=== PATIENT | female | born 1940 | race Caucasian/White ===

== ENCOUNTER → 2017-09-04 | Outpatient (CLI) | payer OTHER | END | disposition home or self-care (01) | LOC: OIH 14:05 | PROVIDERS: ATTEND Internal Medicine | DX: Z13.6 Encounter for screening for cardiovascular disorders (principal) | CPT/HCPCS: 75571 ==

== ENCOUNTER → 2017-10-12 | Outpatient (CLI) | payer MEDICARE ==
[~2017-10-12] MED LIST: REGADENOSON 0.4 MG/5 ML PF SYG IVP SCH
== END | disposition home or self-care (01) ==
LOC: RAH 08:36
PROVIDERS: ATTEND Internal Medicine
DX: R07.9 Chest pain, unspecified (principal)
CPT/HCPCS: 78452; 93017; 96374; A9500 ×2; J2785

== ENCOUNTER → 2018-05-11 | Outpatient (CLI) | payer MEDICARE | END | disposition home or self-care (01) | LOC: RAH 13:43 | PROVIDERS: ATTEND Internal Medicine | DX: Z12.31 Encounter for screening mammogram for malignant neoplasm of breast (principal) | CPT/HCPCS: 77067 ==

== ENCOUNTER → 2019-05-17 | Outpatient (CLI) | payer MEDICARE | END | disposition home or self-care (01) | LOC: RAH 14:16 | PROVIDERS: ATTEND Internal Medicine | DX: Z12.31 Encounter for screening mammogram for malignant neoplasm of breast (principal) | CPT/HCPCS: 77067 ==

== ENCOUNTER → 2019-10-28 | Outpatient (CLI) | payer MEDICARE | END | disposition home or self-care (01) | LOC: SHCH 08:26 | PROVIDERS: ATTEND Internal Medicine Cardiovascular Disease | DX: I35.0 Nonrheumatic aortic (valve) stenosis (principal) | CPT/HCPCS: 93306; 93356 ==

== ENCOUNTER → 2020-07-15 | Outpatient (CLI) | payer MEDICARE | END | disposition home or self-care (01) | LOC: RAH 08:05 | PROVIDERS: ATTEND Internal Medicine | DX: Z12.31 Encounter for screening mammogram for malignant neoplasm of breast (principal) | CPT/HCPCS: 77067 ==

== ENCOUNTER → 2022-05-30 | Outpatient (CLI) | payer MEDICARE | END | disposition home or self-care (01) | LOC: SHCH 13:04 | PROVIDERS: ATTEND Internal Medicine Cardiovascular Disease | DX: I08.3 Combined rheumatic disorders of mitral, aortic and tricuspid valves (principal); I11.9 Hypertensive heart disease without heart failure; E78.5 Hyperlipidemia, unspecified | CPT/HCPCS: 93306 ==

== ENCOUNTER → 2023-05-13 | Outpatient (CLI) | payer MEDICARE | END | disposition home or self-care (01) | LOC: SHCH 11:27 | PROVIDERS: ATTEND Internal Medicine Cardiovascular Disease | DX: I35.0 Nonrheumatic aortic (valve) stenosis (principal); I10 Essential (primary) hypertension; R93.1 Abnormal findings on diagnostic imaging of heart and coronary circulation; Z79.82 Long term (current) use of aspirin; Z79.899 Other long term (current) drug therapy | CPT/HCPCS: 93306 ==

== ENCOUNTER → 2024-06-29 | Outpatient (CLI) | payer MEDICARE ==
--- NOTE | 2024-06-30 22:09 | HMCSR ---
APPROVED REPORT EXAM: Two-dimensional and M-mode echocardiogram with Doppler and color Doppler. INDICATION ICD: I35.0 Non-rheumatic aortic valve stenosis 2D Dimensions RVDd3.1 cmLVEF(%)58.0 (>50%)LVED Vol(simp.)92.0 mL IVSd1.3 (0.7-1.1cm)FS(%)30 %LVES Vol(simp.)34.0 mL LVDd4.3 (3.8-5.6cm)Ao Root(2D)2.9 (2.0-3.7cm)LVEF(%, simp.)63 % PWd1.2 (0.7-1.1cm)LVOT diam2.0 (1.8-2.4cm)LA ESV INDEX (BP)36.72 mL/m2 LVDs3.0 (2.5-4.0cm)IVC diam1.5 cm Aortic Valve AoV Vmax4.7 m/Roseanne Peak GR87.3 mmHgLVOT Vmax1.2 m/s AoV VTI1.2 mAo Mean GR51.2 mmHgLVOT VTI0.28 m ANGELLA (VMAX)0.7 cm2Al P1/2T454 msAVA (VTI) 0.7 cm2 Mitral Valve MV E Vmax86.6 cm/sDECEL Lmqb909 ms MV A Fwwj488.7 cm/sP 1/2 T96 ms E/A ratio0.6MVA (PHT)2.3 cm2 MR Max PG142 mmHg TDI E/E' Gzeqih79.2E/E' Ceukqiu52.1 Pulmonary Valve PV Vmax1.1 m/sPV VTI0.22 mPV Mean GR2 mmHg PV Peak GR4.5 mmHgPI End Donna. Lucius 1.0 cm/s Tricuspid Valve TR Vmax2.5 m/sRAP (EST) 3 baMeQCIA38.0 mmHg TR Peak GR25.0 mmHg Left Ventricle The left ventricle structure and function is normal. There is normal LV segmental wall motion. There is mild concentric left ventricular hypertrophy. LVEF is 60-65%. Grade 2 diastolic dysfunction. Right Ventricle The right ventricle is normal size. Prominent apical RV trabeculations. Right ventricular systolic fu nction is moderately reduced. Atria The left atrium is mildly dilated. The right atrium size is normal. Aortic Valve Aortic valve is trileaflet. The aortic valve is calcified and displays decreased opening. Trace aorti c regurgitation. AV Dimensionless Index is 0.23 Calculated aortic valve area is 0.7 cm2 with maximum pressure gradient of 87.3 mmHg and mean pressure gradient of 51.2 mmHg. Dimensionless index is 0.23. Findings consistent with severe . Mitral Valve Mitral valve leaflets are mildly sclerotic but open well. Mitral annular calcification is mild. Kaylee l regurgitation is mild to moderate. There is no mitral valve stenosis. Tricuspid Valve The tricuspid valve leaflets appear normal. There is trace tricuspid regurgitation. Pulmonic Valve Pulmonic valve is not well visualized. There is trace to mild valvular regurgitation. Great Vessels The aortic root is normal in size. The IVC is normal in size and collapses >50% with inspiration. Pericardium No pericardial effusion. Conclusion The right ventricle is normal size. Prominent apical RV trabeculations. There is mild concentric left ventricular hypertrophy. There is normal LV segmental wall motion. LVEF is 60-65%. Grade 2 diastolic dysfunction. Aortic valve is trileaflet. The aortic valve is calcified and displays decreased opening. Calculated aortic valve area is 0.7 cm2 with maximum pressure gradient of 87.3 mmHg and mean pressure gradient of 51.2 mmHg. Dimensionless index is 0.23. Findings consistent with severe . Mitral valve leaflets are mildly sclerotic but open well. Mitral annular calcification is mild. Mitral regurgitation is mild to moderate. No pericardial effusion.
== END | disposition home or self-care (01) ==
LOC: SHCH 07:56
PROVIDERS: ATTEND Internal Medicine Cardiovascular Disease
DX: I08.8 Other rheumatic multiple valve diseases (principal); I35.0 Nonrheumatic aortic (valve) stenosis
CPT/HCPCS: 93306

== ENCOUNTER 2024-08-15 06:43 | Day surgery (SDC) | payer MEDICARE ==
[2024-08-13 11:12] LABS: BASOPHILS # (AUTO) 0.09 K/uL (0.00-0.20); BASOPHILS % (AUTO) 0.9 % (0.0-5.0); EOSINOPHILS # (AUTO) 0.06 K/uL (0.00-0.70); EOSINOPHILS % (AUTO) 0.6 % (0.0-8.0); HEMATOCRIT 43.6 % (36-48); IMMATURE GRANULOCYTE ABSOLUTE 0.03 K/uL (0-1); LYMPHOCYTES # (AUTO) 1.6 K/uL (1.0-4.8); LYMPHOCYTES % (AUTO) 16.2 % (21.0-51.0); MEAN CORPUSCULAR HGB CONC 33.9 g/dL (32.0-36.0); MEAN CORPUSCULAR VOLUME 91.2 fL (79-99); MONOCYTES # (AUTO) 0.7 K/uL (0.1-1.0); MONOCYTES % (AUTO) 6.6 % (3.0-13.0); NEUTROPHILS # (AUTO) 7.4 K/uL (1.8-7.7); NEUTROPHILS % (AUTO) 75.4 % (40.0-77.0); PLATELET COUNT (AUTO) 252 K/uL (130-400); RED BLOOD CELL COUNT(AUTO) 4.78 MIL/uL (4.00-5.50); RED CELL DISTRIBUTION WIDTH 12.9 % (11.0-15.5); WHITE BLOOD COUNT (AUTO) 9.9 K/uL (4.8-10.8)
[2024-08-13 11:16] LABS: CREATININE 0.9 mg/dL (0.5-1.0); POTASSIUM 4.4 mmol/L (3.5-5.1)
--- NOTE | 2024-08-13 11:22 | EKG ---
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
[2024-08-13 11:25] VITALS: BP 153/74; PULSE 80; RESP 18; TEMP 97.3
[2024-08-13 11:29] LABS: INR <= 0.93 (0.85-1.15); PROTHROMBIN TIME 10.3 SEC (9.6-11.6)
[2024-08-13 11:31] LABS: PARTIAL THROMBOPLASTIN TIME 27.1 SEC (26.3-35.5)
[2024-08-13 11:34] LABS: B-TYPE NATRIURETIC PEPTIDE 71 pg/mL (0-100)
--- NOTE | 2024-08-13 12:23 | HMCIMG ---
Exam Type: CHEST 1VW Clinical Information: PREOP Comparison: None Findings: The lungs are clear of infiltrates. The heart is normal in size. The bony and soft tissue structures of the chest are unremarkable. Impression: Clear lungs.
[2024-08-15] VITALS (14 sets, daily range): BP systolic 100–173; BP diastolic 45–80; PULSE 59–81; RESP 14–16; TEMP 97.1–97.5
[~2024-08-15] VITALS: Ht 154.9 cm; Wt 78.5 kg
[~2024-08-15 06:43] MED LIST changes: +AMLO-258 PO; +ASPI-1443 PO; +EZET-77 PO; +GLUC1TAB61 PO; +LEVO125T95 PO; +LOSA50TA64 PO; -REGADENOSON 0.4 MG/5 ML PF SYG IVP SCH; +UBID100T7 PO
[2024-08-15] MEDS ORDERED: 0.9%NACL 1000ML 1,000 ML IV SCH ×2 (08:30→12:00)
[2024-08-15] MEDS ORDERED: IOHEXOL 350 MG/ML 100ML INFUS..BTL IV ONE (09:28)
[2024-08-15] MEDS ORDERED: LIDOCAINE HCL 400MG/20ML VIAL ONE (09:28)
[2024-08-15] MEDS ORDERED: HEParin-NS 1,000 UNIT/500 ML 1,000 ML IV ONE (09:28)
[2024-08-15] MEDS ORDERED: NITROGLYCERIN 50MG VIAL ONE (09:29)
[2024-08-15] MEDS ORDERED: HEParin-NS 1,000 UNIT/500 ML 500 ML IV ONE (09:31)
[2024-08-15] MEDS ORDERED: FENTanyl CITRate PF 50 MCG/1 ML 2ML VIAL ONE (09:37)
[2024-08-15] MEDS ORDERED: BIVALIRUDIN 250 MG/VIAL IV ONE (09:38)
[2024-08-15] MEDS ORDERED: HEParin 10,000 UNIT/10ML (1,000 UNIT/ML) VIAL ONE (09:38)
[2024-08-15] MEDS ORDERED: MIDAZOLAM HCL 1 MG/ML 2ML VIAL ONE (09:38)
[2024-08-15] MEDS ORDERED: IOHEXOL-350 50ML VIAL IV ONE (10:42)
[2024-08-15] MEDS ORDERED: ATROPINE 1MG SYG IVP ONE (11:29)
--- NOTE | 2024-08-15 12:01 | PRN ---
DATE OF PROCEDURE: 08/15/2024 PROCEDURE PERFORMED: RIGHT AND LEFT HEART CATHETERIZATION, LEFT VENTRICULOGRAM, RIGHT AND LEFT SELECTIVE CORONARY ANGIOGRAM, RIGHT COMMON FEMORAL ANGIOGRAM, FAILED PERCLOSE SUTURE CLOSURE OF THE RIGHT COMMON FEMORAL ARTERY, MYNX CLOSURE, AND CONSCIOUS SEDATION SPLICING MACHINE OPERATOR: Vaughn Valentino MD, [facility] INDICATION: Severe asymptomatic aortic stenosis PROCEDURE NOTE: After informed consent was obtained the patient was prepped and draped in the usual sterile fashion. A 6 [place] 65 cm arterial sheath was inserted in the right femoral artery using a modified micropuncture technique with ultrasound guidance with a front wall, first pass puncture. A seven [place] venous sheath with hemostatic valve was inserted in the right common femoral vein again with micropuncture technique and ultrasound guidance. The venous sheath was aspirated and flushed and the arterial sheath was aspirated and flushed. A seven [place] S tipped [place] catheter was advanced to the right heart using balloon floatation and ultrasound guidance. Pressure measurements were obtained in the RA, RV, PA, and pulmonary capillary wedge positions. A 5 [place] pigtail catheter was then advanced over a J-tipped guidewire to the ascending aorta, then using a straight floppy-tipped wire we easily traverse the stenotic aortic valve. The catheter was aspirated and flushed and pressure measurements were obtained in the LV and descending thoracic aorta via the long 65 cm sheath. Simultaneous pressure measurement of LVEDP and wedge pressure were obtained. Both Wolf and thermodilution cardiac outputs were obtained, followed by calculation of aortic valve areas. A left ventriculogram was then performed in a 30 EATON projection. A pullback procedure was then performed, and this catheter was removed through the long arterial sheath. A 6F JL-4 was then advanced to the ascending aorta over a J-tipped guidewire, was aspirated and flushed, and was used for selective left coronary angiograms in multiple obliquities. A JR-4 was advanced in a similar fashion to the ascending aorta over a J-tipped guidewire and was used for selective right coronary angiograms in multiple obliquities with findings as outlined below. A right common femoral angiogram was performed to assess suitability for Perclose suture closure and the Perclose device was deployed in standard fashion. Due to calcification of the right common femoral artery two Perclose devices failed to deployed and a Mynx closure device was deployed. A small hematoma was noted following the procedure. FINDINGS: RIGHT HEART CATHETERIZATION: RA pressure: 10 mm of mercury on the A-wave 8 mm of mercury on the V-wave Mean RA pressure 6 mm of mercury RV pressure: 35/10 mm of mercury PA pressure: 35/16 mm of mercury with a mean PA pressure of 18 mm of mercury. Pulmonary capillary wedge pressure: 15 mm of mercury on the A-wave, 16 mm of mercury on the V-wave. Mean pulmonary capillary wedge pressure 12 mm of mercury. Wolf cardiac output 3.2 L per minute with cardiac index of 1.8 liters/minute per meter squared Thermodilution cardiac output 4.6 liters/minute with cardiac index of 2.6 liters/minute per meter squared LEFT HEART HEMODYNAMICS: Aortic valve peak to peak gradient 33 mm of mercury and mean gradient 30 mm of mercury Aortic valve area with thermodilution cardiac output 0.8 cm2 and with Wolf cardiac output 0.6 cm2 LEFT VENTRICULOGRAM: The LVEF was greater than 80% with a hyperdynamic left ventricle. There was no angiographic MR. CORONARY ANGIOGRAM: LEFT MAIN: The left main had a 75% distal stenosis with calcification. LEFT ANTERIOR DESCENDING: The proximal LAD was calcified and there was a 70% calcific mid LAD stenosis with a 50% distal LAD stenosis followed by a small apical LAD measuring approximately 1.5 mm. The diagonal one had an 80% proximal stenosis. LEFT CIRCUMFLEX: The left circumflex was nondominant and had an 80% proximal stenosis after a small OM1 which was normal. The OM2 was small and normal and the OM3 was also small and normal. RAMUS INTERMEDIATE BRANCH: The ramus intermediate was large and had a 90% proximal followed by a tandem 90% proximal stenosis. The distal ramus was suitable for bypass. RIGHT CORONARY ARTERY: The right coronary artery was dominant and had a 50% calcific proximal stenosis with a 50% calcific proximal to mid stenosis. The distal RCA and posterolateral branch were normal. The PDA had a 40% proximal stenosis. IMPRESSION: Severe asymptomatic aortic stenosis with aortic valve area of 0.8 cm2, peak aortic valve gradient 33 mm of mercury and mean aortic valve gradient of 30 mm of mercury. Hyperdynamic LV with LVEF of greater than 80%. No mitral regurgitation. No mitral stenosis. Mitral annular calcification was noted. Severe left main and three-vessel coronary artery disease with 75% distal left main stenosis, 70% mid LAD stenosis, 90% and 90% tandem proximal ramus intermediate stenosis, 80% proximal left circumflex stenosis, and 50% and 50% tandem proximal RCA stenoses RECOMMENDATION: Evaluate for surgical aortic valve replacement with coronary artery bypass surgery. COMPLICATIONS OF PROCEDURE: None, the patient tolerated the procedure well and was returned to her room in stable condition. HEMOSTASIS: Perclose suture closure failed due to calcification of the right common femoral artery. Mynx closure device successful. ESTIMATED BLOOD LOSS: 15 mL. CONTRAST TOTAL: 115 mL. VAUGHN VALENTINO MD Aug 15, 2024 12:01
--- NOTE | 2024-08-15 12:42 | NUR ---
NOTED PATIENTS RIGHT GROIN DRESSING HALF SOAKED WITH BLOOD, D-STAT APPLIED HELD PRESSURE X 10 MINUTES. SITE APPEARED ASYMPTOMATIC AFTER.
--- NOTE | 2024-08-15 14:20 | NUR ---
SPOKE TO [facility] S[facility] WAS TOLD THEY CAN FOLLOW UP WITH PT OUT PT. INFORMATION FAXED TO NICHOLAS DELGADO
== END 2024-08-15 17:25 | disposition home or self-care (01) ==
LOC: DAH 06:43
PROVIDERS: ATTEND Internal Medicine Cardiovascular Disease
DX: I35.0 Nonrheumatic aortic (valve) stenosis (principal); R93.1 Abnormal findings on diagnostic imaging of heart and coronary circulation; I25.10 Atherosclerotic heart disease of native coronary artery without angina pectoris; I10 Essential (primary) hypertension; E78.5 Hyperlipidemia, unspecified; E03.9 Hypothyroidism, unspecified; Z79.82 Long term (current) use of aspirin; Z86.73 Personal history of transient ischemic attack (TIA), and cerebral infarction without residual deficits; Z90.49 Acquired absence of other specified parts of digestive tract; Z90.89 Acquired absence of other organs; Z88.0 Allergy status to penicillin; Z88.1 Allergy status to other antibiotic agents; Z79.01 Long term (current) use of anticoagulants; Z79.899 Other long term (current) drug therapy
CPT/HCPCS: 80048; 83880; 85025; 85610; 85730; 36415; 71045; 93005; 93460; C1769 ×2; C1894 ×4; C1760 ×3; C1893 ×2; J3010; J3490 ×2; J0461; J2250; J1644 ×2; Q9967 ×2; A4215; A4222; A4221; A4663; A4216; A4606; A4223 ×3; 96360; 96361; 99156; 99157; J0583

== ENCOUNTER 2024-12-10 09:20 | Day surgery (SDC) | payer OTHER, MEDICARE ==
[2024-12-10] VITALS (23 sets, daily range): BP systolic 98–137; BP diastolic 38–86; PULSE 68–78; RESP 14–40; TEMP 98–98.2; O2SAT 92–94
[~2024-12-10] VITALS: Ht 162.6 cm; Wt 81.1 kg
--- NOTE | 2024-12-10 10:30 | NUR ---
Obtained consent from patient's spouse (Edgar Guzman) due to patient inability to sign own consent as a result of upper extremity weakness. Patient verbalized understanding of scheduled inferior vena cava filter placement and agreed. No further needs noted.
[2024-12-10] MEDS ORDERED: GABA-529 PO (11:33)
[2024-12-10] MEDS ORDERED: SODI473S9 TP (11:33)
[2024-12-10] MEDS ORDERED: HYDR0.5S2 IJ (11:33)
[2024-12-10] MEDS ORDERED: LANS30TA10 PO (11:33)
[2024-12-10] MEDS ORDERED: DARB100D SQ (11:33)
[2024-12-10] MEDS ORDERED: CALC0.253 PO (11:33)
[2024-12-10] MEDS ORDERED: SPIR25TA6 PO (11:33)
[2024-12-10] MEDS ORDERED: ASPI-1012 PO (11:33)
[2024-12-10] MEDS ORDERED: FURO20TA4 PO (11:33)
[2024-12-10] MEDS ORDERED: GENT30OI2 TP (11:33)
[2024-12-10] MEDS ORDERED: DIPH25TA20 PO (11:33)
[2024-12-10] MEDS ORDERED: SUCR1ORA15 PO (11:33)
[2024-12-10] MEDS ORDERED: LEVO112T4 PO (11:33)
[2024-12-10] MEDS ORDERED: ONDA4VIA22 IJ (11:33)
[2024-12-10] MEDS ORDERED: MIDO10TA3 PO (11:33)
[2024-12-10] MEDS ORDERED: MELA3TAB41 PO (11:33)
[2024-12-10] MEDS ORDERED: POLY17PO52 PO (11:33)
[2024-12-10] MEDS ORDERED: INSLAN SQ (11:33)
[2024-12-10] MEDS ORDERED: ACET650O3 PO (11:33)
[2024-12-10] MEDS ORDERED: HYDR-4068 PO (11:33)
[2024-12-10] MEDS ORDERED: NITR0.4T50 SL (11:33)
[2024-12-10] MEDS ORDERED: CLON0.5T23 PO (11:33)
[2024-12-10] MEDS ORDERED: HYDR-4060 PO (11:33)
[2024-12-10] MEDS ORDERED: LACT-441 PO (11:33)
[2024-12-10] MEDS ORDERED: LIDOCAINE HCL 400MG/20ML VIAL ONE (12:24)
[2024-12-10] MEDS ORDERED: HEParin-NS 1,000 UNIT/500 ML 500 ML IV ONE (12:24)
[2024-12-10] MEDS ORDERED: IODIXANOL 320 MG/ML 100 ML VIAL ONE (12:43)
--- NOTE | 2024-12-10 17:13 | NUR ---
[facility] transportation services called at this time. Report given to Eugene at [facility] at [phone].
--- NOTE | 2024-12-10 22:27 | NUR ---
PATIENT PICKED UP VIA EMS.
--- NOTE | 2024-12-11 06:09 | CCATH ---
INDICATION: DVT and risk of PE. TECHNIQUE: Informed consent was obtained after discussion of the risks, benefits and alternatives of the treatment. The right groin was prepped and draped in a sterile fashion. A 1% lidocaine was used for anesthesia. Using ultrasound guidance, the micropuncture needle was advanced to the right common femoral vein and the wire advanced centrally. A sheath was placed and IVC venogram was performed. Arely IVC filter was deployed in the infrarenal IVC. Completion venogram was performed. All the wires and catheters were removed and hemostasis achieved with manual compression. Sterile dressing was applied with no immediate complication. FINDINGS: Completion venogram demonstrated adequate position of the infrarenal Arely IVC filter. IMPRESSION: Uneventful placement of the IVC filter in the infrarenal IVC. The patient tolerated the procedure well. TID: [id number] RECEIPT: [id number]
== END 2024-12-10 22:27 ==
LOC: 2CH 09:20 → DAH 09:20 → UNDOADMOB 09:20 → EDSTATUS 15:10 → DAH 22:27 → UNDODISOB 22:27
PROVIDERS: ATTEND Internal Medicine Critical Care Medicine
DX: I82.409 Acute embolism and thrombosis of unspecified deep veins of unspecified lower extremity (principal); J96.02 Acute respiratory failure with hypercapnia; J96.01 Acute respiratory failure with hypoxia; I10 Essential (primary) hypertension; E78.5 Hyperlipidemia, unspecified; I25.10 Atherosclerotic heart disease of native coronary artery without angina pectoris; E03.9 Hypothyroidism, unspecified; Z86.73 Personal history of transient ischemic attack (TIA), and cerebral infarction without residual deficits; Z93.0 Tracheostomy status; Z95.1 Presence of aortocoronary bypass graft; Z98.890 Other specified postprocedural states; Z88.0 Allergy status to penicillin; Z88.8 Allergy status to other drugs, medicaments and biological substances; Z79.899 Other long term (current) drug therapy; Z79.890 Hormone replacement therapy; Z79.82 Long term (current) use of aspirin
CPT/HCPCS: 37191; 82948 ×2; C1769; C1894; C1880; J3490; J1644; G0378; G0379; Q9967